=== PATIENT | female | born 2000 | race Two or more races ===

== ENCOUNTER 2020-07-07 11:40 | Emergency (ER) | payer OTHER ==
[~2020-07-07] VITALS: Ht 154.9 cm; Wt 59.9 kg
[2020-07-07] MEDS ORDERED: PRENA1 TRUE CO1 EACH (12:03)
== END 2020-07-07 17:32 | disposition home or self-care (01) ==
LOC: EMR PED 11:40 → ER 12:01
DX: O26.892 Other specified pregnancy related conditions, second trimester (principal); R10.2 Pelvic and perineal pain; Z3A.17 17 weeks gestation of pregnancy

== ENCOUNTER → 2020-08-08 | Outpatient (CLI) | payer OTHER ==
[~2020-08-08] MED LIST: PRENA1 TRUE CO1 EACH
== END | disposition home or self-care (01) ==
LOC: PRENATAL 10:56
PROVIDERS: ATTEND Obstetrics & Gynecology Maternal & Fetal Medicine
DX: O35.0XX1 Maternal care for (suspected) central nervous system malformation in fetus, fetus 1 (principal); O35.3XX1 Maternal care for (suspected) damage to fetus from viral disease in mother, fetus 1; O98.512 Other viral diseases complicating pregnancy, second trimester; Z36.89 Encounter for other specified antenatal screening; Z3A.22 22 weeks gestation of pregnancy

== ENCOUNTER 2020-09-04 14:48 | Emergency (ER) | payer OTHER ==
[~2020-09-04] VITALS: Ht 154.9 cm; Wt 67.6 kg
== END 2020-09-04 19:31 | disposition home or self-care (01) ==
LOC: ER 14:48
DX: O21.0 Mild hyperemesis gravidarum (principal); Z34.02 Encounter for supervision of normal first pregnancy, second trimester

== ENCOUNTER 2020-12-03 12:30 | Inpatient (IN) | payer OTHER ==
[~2020-12-03] VITALS: Ht 154.9 cm; Wt 77.1 kg
[2020-12-12] MEDS ORDERED: PRENATAL + DHA1 EAC1 PO (16:19)
[2020-12-15] MEDS ORDERED: FERROUS SULFAT325 MG PO (08:17)
== END 2020-12-15 10:23 | disposition home or self-care (01) | DRG 807 ==
LOC: LDR 12-12 05:52 → OB/GYN 12-12 12:30
PROVIDERS: ADMIT Specialist; ATTEND Specialist
PROC: 10E0XZZ Delivery of Products of Conception, External Approach (ICD-10-PCS; principal; 2020-12-12)
PROC: 0HQ9XZZ Repair Perineum Skin, External Approach (ICD-10-PCS; 2020-12-12)
PROC: 4A1HXFZ Monitoring of Products of Conception, Cardiac Rhythm, External Approach (ICD-10-PCS; 2020-12-12)
DX: O48.0 Post-term pregnancy (principal); Z37.0 Single live birth; O90.81 Anemia of the puerperium; D64.9 Anemia, unspecified; O70.0 First degree perineal laceration during delivery; O99.824 Streptococcus B carrier state complicating childbirth; Z3A.40 40 weeks gestation of pregnancy; Z20.822 Contact with and (suspected) exposure to COVID-19